=== PATIENT | male | born 1975 | race Two or more races ===

== ENCOUNTER 2022-07-15 21:36 | Emergency (ER) | payer OTHER ==
[~2022-07-15] VITALS: Ht 182.9 cm; Wt 81.2 kg
[2022-07-15] MEDS ORDERED: VERELAN PM100 MG (22:10)
[2022-07-15] MEDS ORDERED: COZAAR100 MG PO (22:10)
[2022-07-15] MEDS ORDERED: ACIDOPHILUS1 EAC3 (22:10)
[2022-07-15] MEDS ORDERED: ECOTRIN81 MG (22:11)
== END 2022-07-15 23:52 | disposition home or self-care (01) ==
LOC: ER 21:36
DX: R07.89 Other chest pain (principal)